=== PATIENT | female | born 1955 | race Caucasian/White ===

== ENCOUNTER → 2016-07-09 | Outpatient (CLI) | payer BC ==
--- NOTE | 2016-07-09 10:39 | REPMRS ---
Patient History The patient states she had a clinical breast exam in 07/14 Patient is postmenopausal. Family history of colorectal cancer in maternal grandfather at age 50 or over, premenopausal breast cancer in maternal aunt at age 50 or over, and breast cancer in maternal grandmother at age 50 or over. Benign stereotatic breast biopsy of the left breast, 2005. Digital Woman Screen Mammo: July 09, 2016 - Exam #: [id number] Bilateral CC and MLO view(s) were taken. Technologist: Rocio Tinsley, Technologist Prior study comparison: July 11, 2015, digital woman screen mammo performed at [facility] [employer] [facility]. June 17, 2014, digital woman screen mammo performed at [facility] [employer] [facility]. FINDINGS: There are scattered fibroglandular densities. There has been no change in the appearance of the mammogram from the prior studies. There is a mild amount of residual fibroglandular tissue which is fairly symmetric. There is no interval development of dominant mass, architectural distortion, or clustered microcalcification suggestive of malignancy. ASSESSMENT: BI-RADS/ACR category 1 mammogram. Negative. Recommendation Routine screening mammogram in 1 year (for women over age 40). This mammogram was interpreted with the aid of an FDA-approved computer-aided dectection system. Electronically Signed By: Modesto Rutledge MD 07/09/16 [id number]
== END ==
LOC: M WHC 08:25
PROVIDERS: ATTEND Nurse Practitioner Family
DX: Z12.31 Encounter for screening mammogram for malignant neoplasm of breast (principal); Z80.3 Family history of malignant neoplasm of breast

== ENCOUNTER → 2016-07-12 | Outpatient (REF) | payer BC ==
[~2016-07-12] MED LIST: ACET30TAB PO; APAP/CODEINE; CALCTAB43 PO; ESTR62CR; ESTR62CR PV; FISH1000 PO; FLON1SPR; FLON50SP; FLUT1SPR2; IBUP200C PO; LEVO100T5 PO; LEVO100T54 PO; STRETAB36 PO; SYNT100T; TYLE500T78 PO; VITMTA PO; ZYRT10CA PO
== END ==
LOC: M LAB REF 16:58
PROVIDERS: ATTEND Physician Assistant
DX: R50.9 Fever, unspecified (principal)

== ENCOUNTER 2016-07-15 07:46 | Emergency (ER) | payer BC ==
[~2016-07-15] VITALS: Ht 157.5 cm; Wt 67.1 kg
[2016-07-15] MEDS ORDERED: FLON1SPR (07:59)
[2016-07-15] MEDS ORDERED: LEVO100T5 PO (07:59)
[2016-07-15] MEDS ORDERED: ZYRT10CA PO (07:59)
[2016-07-15] MEDS ORDERED: MORPHINE 2 MG/ML 1ML SYRINGE IV ONE ×2 (08:15→11:30)
[2016-07-15] MEDS ORDERED: ACETAMINOPHEN TAB 650MG DOSE (2X325MG) PO ONE (08:15)
[2016-07-15] MEDS ORDERED: NS 1,000 ML IV ONE (08:15)
--- NOTE | 2016-07-15 09:07 | REP ---
Clinical: Chest pain and fever. Technique: PA and lateral. Comparison: None. Findings: Acute versus chronic linear fibroatelectatic changes at the left base require correlation. The remainder of lung gibbs are clear. No further consolidation, effusion, or pneumothorax. Mediastinum and cardiac silhouette normal. Skeletal structures intact. Impression: Acute versus chronic linear fibroatelectatic changes at the left base Signed by Duy Overton MD 07/15/2016 08:58 A
[2016-07-15 09:38] LABS: BASO % 0.4 % (0.0-1.0); EOS # 0.1 K/mm3 (0.0-0.50); LARGE UNSTAINED CELL # 0.4 K/mm3 (0.0-0.4); LARGE UNSTAINED CELL % 5.5 % (0.0-4.0); LYMPH % 13.8 % (24.0-44.0); MEAN CORPUSCULAR HEMOGLOBIN 29.9 pg (27.0-33.0); MEAN CORPUSCULAR HGB CONC 32.4 g/dl (32.0-36.5); MEAN CORPUSCULAR VOLUME 92.2 fl (80.0-96.0); MONO # 0.5 K/mm3 (0.0-0.8); MONO % 6.7 % (0.0-5.0); NEUTROPHILS # 5.1 K/mm3 (1.8-7.7); NEUTROPHILS % 72.6 % (36.0-66.0); PLATELET COUNT, AUTOMATED 266 k/mm3 (150-450); RED CELL DISTRIBUTION WIDTH 11.9 % (11.5-14.5)
[2016-07-15 09:59] LABS: ALBUMIN/GLOBULIN RATIO 0.77 (1.00-1.93); ALKALINE PHOSPHATASE 123 U/L (45-117); ALT/SGPT 67 U/L (12-78); ANION GAP 9 MEQ/L (8-16); AST/SGOT 48 U/L (15-37); BILIRUBIN,DIRECT 0.1 MG/DL (0.0-0.2); BILIRUBIN,TOTAL 0.4 MG/DL (0.2-1.0); BLOOD UREA NITROGEN 5 MG/DL (7-18); CALCIUM LEVEL 8.6 MG/DL (8.5-10.1); CARBON DIOXIDE LEVEL 26 MEQ/L (21-32); CHLORIDE LEVEL 105 MEQ/L (98-107); CREATININE FOR GFR 0.76 MG/DL (0.55-1.02); GLOMERULAR FILTRATION RATE > 60.0 (>51); GLUCOSE, FASTING 92 MG/DL (70-105); POTASSIUM SERUM 3.3 MEQ/L (3.5-5.1); SODIUM LEVEL 140 MEQ/L (136-145); TOTAL PROTEIN 6.9 GM/DL (6.4-8.2)
--- NOTE | 2016-07-15 12:05 | REP ---
Clinical: Right upper quadrant abdominal pain. Technique: Rutledge scale ultrasound using curved array transducer. Findings: The liver and pancreas are normal in contour, size, and echogenicity without focal hepatic or pancreatic lesions identified. The gallbladder is distended and includes multiple polyps up to approximately 5 mm without gallstones, wall thickening or pericholecystic fluid. No sonographic Noriega's sign was elicited. No biliary ductal dilatation is appreciated, and the common bile duct measures 2.8 mm diameter. The right kidney is normal in reniform shape without hydronephrosis and measures 11.1 x 4.7 x 4.5 cm with 1.7 cm upper pole cyst. No ascites. Visualized portions of the abdominal aorta normal. Impression: 1. Mildly distended gallbladder with multiple polyps. No further sonographic evidence to suggest acute cholecystitis. 2. 1.7 cm simple right renal cyst. Signed by Duy Overton MD 07/15/2016 11:57 A
[2016-07-15] MEDS ORDERED: IBUPROFEN 600 MG TAB PO ONE (12:30)
[2016-07-15] MEDS ORDERED: ACET30TAB PO (13:12)
[2016-07-15 13:53] VITALS: BP 127/70
--- NOTE | 2016-07-16 07:10 | ED PDOC ---
Post-Departure Follow-Up dr bess faxed formal report of gb for fu Florentin Cruz MD July 16, 2016 07:10
--- NOTE | 2016-07-16 11:34 | ECGEPIP ---
Stationary ECG Study [facility] - ED Test Date: 2016-07-15 Pat Name: ORLIN CALIX Department: Room: - Gender: F Tool Designer: jeanne : [id number] Requested By: Poncho Felix PA-C Order Number: [id number] Reading MD: Janny Krause Measurements Intervals [place] Rate: 67 P: 65 MA: 116 QRS: 67 QRSD: 90 T: 74 QT: 346 QTc: 365 Interpretive Statements SINUS RHYTHM WITH SHORT MA INTERVAL NONSPECIFIC T-WAVE ABNORMALITY INCREASED RATE 07/28/11 Electronically Signed On 07-16-2016 11:34:18 EDT by Janny Krause
== END 2016-07-15 13:55 | disposition home or self-care (01) ==
LOC: M ED 08:34
DX: M75.51 Bursitis of right shoulder (principal); B34.9 Viral infection, unspecified; R00.1 Bradycardia, unspecified; E07.9 Disorder of thyroid, unspecified; J30.9 Allergic rhinitis, unspecified; Z79.899 Other long term (current) drug therapy; Z88.3 Allergy status to other anti-infective agents; Z91.040 Latex allergy status

== ENCOUNTER 2016-07-19 10:18 | Inpatient (IN) | payer BC ==
[~2016-07-19] VITALS: Ht 157.5 cm; Wt 69.2 kg
[~2016-07-19 10:18] MED LIST changes: -APAP/CODEINE; -CALCTAB43 PO; -ESTR62CR; -ESTR62CR PV; -FISH1000 PO; -FLON50SP; -FLUT1SPR2; -IBUP200C PO; -LEVO100T54 PO; -STRETAB36 PO; -SYNT100T; -TYLE500T78 PO; -VITMTA PO
[2016-07-19] MEDS ORDERED: APAP/CODEINE (10:35)
[2016-07-19] MEDS ORDERED: ESTR62CR (10:35)
[2016-07-19] MEDS ORDERED: IBUP200C PO (10:35)
[2016-07-19] MEDS ORDERED: FLUT1SPR2 (10:35)
[2016-07-19] MEDS ORDERED: SYNT100T (10:35)
[2016-07-19] MEDS ORDERED: NS 500 ML IV ONE (12:15)
[2016-07-19] MEDS ORDERED: KETOROLAC 30 MG/ML VIAL (J1885) IV ONE (12:15)
[2016-07-19 12:33] LABS: BASO % 0.2 % (0.0-1.0); EOS # 0.1 K/mm3 (0.0-0.50); LARGE UNSTAINED CELL # 0.3 K/mm3 (0.0-0.4); LARGE UNSTAINED CELL % 2.6 % (0.0-4.0); LYMPH # 1.6 K/mm3 (1.5-4.5); LYMPH % 12.6 % (24.0-44.0); MEAN CORPUSCULAR HEMOGLOBIN 30.3 pg (27.0-33.0); MEAN CORPUSCULAR HGB CONC 33.1 g/dl (32.0-36.5); MEAN CORPUSCULAR VOLUME 91.8 fl (80.0-96.0); MONO # 0.4 K/mm3 (0.0-0.8); NEUTROPHILS % 80.6 % (36.0-66.0); PLATELET COUNT, AUTOMATED 576 k/mm3 (150-450); RED CELL DISTRIBUTION WIDTH 12.2 % (11.5-14.5); WHITE BLOOD COUNT 12.5 K/mm3 (4.0-10.0)
[2016-07-19 12:39] LABS: ANION GAP 12 MEQ/L (8-16); BLOOD UREA NITROGEN 8 MG/DL (7-18); CALCIUM LEVEL 8.9 MG/DL (8.8-10.2); CARBON DIOXIDE LEVEL 28 MEQ/L (21-32); CHLORIDE LEVEL 101 MEQ/L (98-107); CREATININE FOR GFR 0.69 MG/DL (0.55-1.02); GLOMERULAR FILTRATION RATE > 60.0 (>45); GLUCOSE, FASTING 93 MG/DL (80-110); POTASSIUM SERUM 3.1 MEQ/L (3.5-5.1); SODIUM LEVEL 141 MEQ/L (136-145)
[2016-07-19 13:19] LABS: ERYTHROCYTE SEDIMENTATION RATE 65 mm/hr (0-30)
[2016-07-19] MEDS ORDERED: ESTR62CR PV (15:11)
[2016-07-19] MEDS ORDERED: ACET30TAB PO (15:11)
[2016-07-19] MEDS ORDERED: STRETAB36 PO (15:18)
[2016-07-19] MEDS ORDERED: FLON50SP (15:18)
[2016-07-19] MEDS ORDERED: FISH1000 PO (15:18)
[2016-07-19] MEDS ORDERED: CALCTAB43 PO (15:18)
[2016-07-19] MEDS ORDERED: LEVO100T54 PO (15:18)
[2016-07-19] MEDS ORDERED: VITMTA PO (15:18)
[2016-07-19] MEDS ORDERED: TYLE500T78 PO (15:18)
--- NOTE | 2016-07-19 17:05 | REP ---
Bilateral shoulder ultrasound: History: Septic shoulder on the right. Aspirated for culture. Findings: Sonographic evaluation of the right shoulder performed and no evidence shoulder joint effusion is seen. The left area was scanned for comparison purposes and is unremarkable as well. Impression: No right shoulder joint fluid could be identified. Accordingly, the right shoulder joint was not aspirated. Findings were telephoned to the ED provider. Signed by Brody Deleon MD 07/20/2016 05:06 P
[2016-07-19] MEDS ORDERED: NS 1,000 ML IV ONE (17:45)
[2016-07-19] MEDS ORDERED: ACETAMINOPHEN 325 MG TAB PO ONE (17:45)
--- NOTE | 2016-07-19 18:07 | ED PDOC ---
Post-Departure Follow-Up AT THIS TIME, HAVE SPOKEN WITH DR. CASTELLANO (ORTHO ON-CALL) NUMEROUS TIMES REGARDING THIS PT. FIRST SPOKE WITH HIM EARLIER TODAY AND ADVISED THAT DR. APPLE ( HOSPITALIST) DOES NOT BELIEVE THIS TO BE A MEDICAL ADMIT IF LIKELY A SEPTIC JOINT AND PT DOES NOT HAVE MANY MEDICAL PROBLEMS. AT THAT TIME, DR. CASTELLANO WANTED A JOINT ASPIRATION PERFORMED UNDER ULTRASOUND GUIDANCE. PLACED ORDER FOR THIS AT THAT TIME AND STUDY WAS DONE AND WAS NOTIFIED BY I.R. STAFF THAT THERE WAS NO FLUID TO ASPIRATE. CALLED AND SPOKE WITH DR. CASTELLANO AGAIN AND ADVISED TO ORDER MRI OF THIS JOINT TO FURTHER DIAGNOSE RIGHT SHOULDER PAIN AND INFECTION. MADE AWARE THAT MRI WAS DOWN ALL WEEKEND AND STILL NOT UP AND FUNCTIONAL AT THIS TIME. CALLED THE ORTHO SERVICE BACK AT THAT TIME AND RECEIVED CALL BACK FROM DR. YORK, (NOW HAND STRAIGHTENER FOR ORTHO) AND ADVISED SINCE WE CANNOT GET AN MRI OF THIS SHOULDER, ADVISED TO ORDER CT WITH CONTRAST OF THIS SHOULDER AND IF THERE IS NO ABSCESS, THEN IT SHOULD BE ADMITTED TO THE HOSPITALIST IT WOULD NO LONGER BE AN ORTHOPEDIC ISSUE. SPOKE WITH PT AND FAMILY AT THIS TIME, WHO IS STILL NPO AND DISCUSSED CURRENT SITUATION. PT AND FAMILY VOICED UNDERSTANDING AT THIS TIME. ADWOA SCALES PA-C July 19, 2016 18:07
[2016-07-19] MEDS ORDERED: ISOVUE-370 76% 100ML VIAL (Q9967) As Ordered ONE (18:10)
--- NOTE | 2016-07-19 18:40 | REP ---
Clinical: Right shoulder pain. Septic joint. Technique: Axial contrast enhanced images of the right shoulder to the mid humeral diaphysis with coronal and sagittal re-formations using 100 ml Isovue 370 intravenous contrast material. Findings: The osseous structures are intact and normal. There is no evidence for acute fracture or dislocation and no significant, overt osteoarthritic degenerative changes are appreciated. The joint spaces normal and without abnormally increased fluid or enhancement. The surrounding musculature is grossly unremarkable. There is no significant intramuscular fluid collection, mass lesion or abnormal enhancement. The surrounding subcutaneous tissues are relatively normal. Axillary region is unremarkable. No significant adenopathy is appreciated. Visualized lung gibbs demonstrate atelectasis in the apical right lower lobe and associated small layering pleural effusion. While these findings are nonspecific, may be cause referred pain to the right shoulder and back. Impression: 1. Normal appearance to the right shoulder by contrast enhanced CT evaluation. No evidence for joint effusion, fluid collection/abscess, mass lesion or other abnormality. No significant, overt osteoarthritic changes. 2. Visualized lung gibbs demonstrate atelectasis involving the apical segment right lower lobe with associated small layering effusion. These findings require correlation and may cause referred pain to the right shoulder and back. Signed by Duy Overton MD 07/19/2016 06:32 P
[2016-07-19] MEDS ORDERED: ONDANSETRON 4MG/2ML VIAL (J2405) IV PRN (19:30)
[2016-07-19] MEDS ORDERED: ACETAMINOPHEN 500 MG TAB PO PRN (19:30)
--- NOTE | 2016-07-19 19:46 | HPE ---
DATE OF ADMISSION: 07/19/2016 PRIMARY CARE PROVIDER: Chance Tracey MD CHIEF COMPLAINT: Fever, mild chills, body aches for 10 days. Shoulder pain for 6 days, redness of the shoulder for 1 day. PAST MEDICAL HISTORY: 1. Hypothyroidism. 2. Hyperlipidemia. HISTORY OF PRESENT ILLNESS: This is a 61-year-old female who has been in her usual state of health until 07/11/2016, when she started having flu-like symptoms with fever ranging from 99-101, body aches, mild chills, more involvement of the back and the shoulders. Went to an urgent care, was diagnosed with viral syndrome and was given some pain medications and discharged. Came to the emergency room on 07/15/2016, with persistence of symptoms, had lab work done, including blood cultures, and a chest xray and gallbladder ultrasound. Did not show any acute abnormalities except mildly distended gallbladder with multiple polyps without any evidence of acute cholecystitis. Was discharged from emergency room with pain medications and was diagnosed with possible viral syndrome and bursitis. Subsequently, blood cultures came back positive, two out of two bottles, with Streptococcus pneumoniae. On the same day, unsure whether the patient was called or not, patient developed redness of the shoulder since last night and severe pain, inability to move the right arm, so came back to the emergency room for a recheck. Patient was originally thought to have septic arthritis with mildly elevated white count of 12.5 and temperature of 100.1. Patient had an ultrasound of the shoulder done which did not show any fluid and could not be aspirated. Subsequently, patient had a CT scan of the shoulder done which showed that the right shoulder was normal on noncontrast CT, no evidence of joint effusion, fluid collection, or abscess. There was no significant osteoarthritic changes. Part of the lung was visualized which showed some atelectasis involving the apical segment of the right lobe and associated small layering effusion. Patient was subsequently admitted to the hospitalist service for possible myofascitis and cellulitis of the right shoulder. Patient reports a bug bite in the right scapula region 2 weeks ago which looked like a mosquito bite or a tick bite and then went away in a couple of days and did not bother her so the patient did not pay attention to it. PAST SURGICAL HISTORY: section. ALLERGIES: BACITRACIN and LATEX. SOCIAL HISTORY: Does not smoke. Does not abuse alcohol or recreational drugs. HOME MEDICATIONS: - Tylenol 1000 mg by mouth four times a day as needed for pain - acetaminophen/codeine one tablet four times a day as needed for pain - calcium with vitamin D one tablet by mouth daily - cetirizine 10 mg by mouth at bedtime - conjugated estrogen one dose per vagina twice per week - fish oil 1000 mg by mouth every evening - Flonase one spray both nostrils twice a day - ibuprofen 200 mg by mouth every 8 hours as needed for pain - Synthroid 100 mcg by mouth daily - multivitamin one tablet by mouth daily - vitamin B complex one tablet by mouth daily REVIEW OF SYSTEMS: Patient complains of persistent fever for the past 10 days with myalgias, now more localized in the right shoulder, difficulty in moving the right arm. Denies any cough or phlegm. Denies any chest pain. Denies any shortness of breath. Denies any nausea, vomiting, or diarrhea. Denies any abdominal pain. PHYSICAL EXAMINATION: VITAL SIGNS: Temperature 100.1, pulse 86, respiratory rate 20, blood pressure 163/82, pulse oximetry 97% in room air. GENERAL: Patient awake, alert, oriented times three, sitting up in bed in no acute distress. HEENT: Normocephalic, atraumatic. Moist mucous membranes. Anicteric eyes. CHEST: Clear to auscultation. CARDIOVASCULAR: S1, S2, regular. No rub, murmur, or gallop. ABDOMEN: Soft, nontender. Bowel sounds present. EXTREMITIES: No edema, skin and soft tissue right shoulder is red and inflamed which spreads to the anterior part of the right chest wall. LABORATORY DATA: WBC 12.5, hemoglobin 12.5, platelets 576. Sodium 141, potassium 3.1, chloride 101, bicarbonate 28, BUN 8, creatinine 0.6, glucose 93, calcium 8.9, CRP 19. Repeat blood cultures ordered. Blood cultures from 07/15/2016, positive for Streptococcus pneumoniae, two out of two bottles. RADIOLOGY: Right upper extremity CT scan showed normal right shoulder by contrast, no joint effusion, fluid collection, abscess, mass, lesion, or any abnormality. No osteoarthritic changes. Lung gibbs demonstrate atelectasis involving the apical segment right lower lobe with associated small layering effusion. Joint ultrasound of the right shoulder did not show any fluid and no fluid could be aspirated. ASSESSMENT AND PLAN: This is a 61-year-old female admitted for right shoulder myofascitis versus cellulitis possibly related to Streptococcus pneumoniae seeding. 1. Right shoulder cellulitis versus myofascitis. Possible organism Streptococcus pneumoniae as blood culture was positive. Will start the patient on ceftaroline. Pain medications as required. 2. Hypothyroidism. Will continue with Synthroid. 3. Deep venous thrombosis (DVT) prophylaxis. Will order.
--- NOTE | 2016-07-19 19:50 | CR ---
DATE OF CONSULTATION: 07/19/2016 REASON FOR CONSULTATION: Right shoulder pain. CHIEF COMPLAINT: Right shoulder pain. HISTORY OF PRESENT ILLNESS: Azul Pardo is a 61-year-old right hand dominant female who has had approximately one week of increasing right shoulder pain and difficulty with movement. The patient has a recent past history of nonspecific bug bite to the posterior scapula which resulted in some migratory arthralgias that started in the lower extremities and migrated to the upper extremity, then concentrating on the right upper extremity. Over the last week or so, the patient has had intermittent fevers, measured at home as high as 101. She presented to the [facility] emergency department last , where blood cultures were drawn. The patient was discharged to home. Blood cultures were positive for Streptococcus pneumoniae. She represented to the emergency department earlier today because of increasing pain and continued fevers at home. She has no prior history of surgery to the right shoulder or infection to the right upper extremity. She has no history of inflammatory arthropathies. The patient denies any chills, night sweats or constitutional symptoms. Her shoulder pain was relieved by ice and antiinflammatories, exacerbated by movement. She denies any numbness, tingling or burning sensations. Denies any associated neck pain. PAST MEDICAL HISTORY: None. MEDICATIONS: None. ALLERGIES: BACITRACIN and LATEX. PAST SURGICAL HISTORY: Noncontributory. SOCIAL HISTORY: The patient is a teacher's aid. Does not smoke, drink or use illicit drugs. Lives with her . Independent in all activities of daily living (ADLs). REVIEW OF SYSTEMS: Positive for recent fever, otherwise fourteen point review of systems was reviewed and unremarkable. PHYSICAL EXAMINATION: VITAL SIGNS: Temperature 98.3 currently. Maximum today 101. Heart rate 83, respiratory rate 18. Blood pressure 139/93. Oxygen saturation 98% on room air. GENERAL: Well-nourished female, appears her stated age. No acute distress. NEUROLOGICAL: She is awake, alert and oriented to person, place and time. She has intact sensory and motor function in her right upper extremity axillary, radial, median, ulnar AIN, PIN distributions. CARDIOVASCULAR: She has a 2+ radial pulse, brisk capillary refill to all digits of the right upper extremity. SKIN: There is a focus of erythema centered over the acromioclavicular (AC) joint with some surrounding induration. There is diffuse erythematous rash extending distally in the anterior chest wall. There is mild induration focused around the AC joint. There is no palpable fluctuance. MUSCULOSKELETAL: Focused physical exam of the right shoulder demonstrates no pain with passive range of motion of the right shoulder. There is no pain with axial load of the shoulder. The patient has 4 out of 5 deltoid strength, supraspinatus strength: She has 90 degrees of active forward flexion and 90 degrees of active abduction, internal rotation to iliac crest. 60 degrees of external rotation limited by her anterior shoulder pain. There is no tenderness along the trapezius, scapular spine, rhomboids, posterior deltoid, deltoid tuberosity, bicipital groove, maximal tenderness located over the AC joint. IMAGING: The patient had an ultrasound of the right shoulder to identify a fluid collection. There was no notable effusion suitable for aspiration. A CT scan with IV contrast of the right shoulder was done demonstrating no evidence of abscess, joint effusion or other drainable fluid collection. LABORATORY FINDINGS: White blood cell count 12.5, hemoglobin 12. The patient has recent blood cultures that are pending. CRP 19. Erythrocyte sedimentation rate of 65. ASSESSMENT: This is a 61-year-old right hand dominant female with right anterior shoulder pain and with clinical evidence of cellulitis. Her exam and imaging make septic arthritis or drainable abscess extremely unlikely. PLAN: I recommend antibiotics to cover for recent Streptococcus pneumoniae positive blood cultures per the primary team. The patient may get ice and antiinflammatories to the right shoulder as needed. She may be weightbearing as tolerated with range of motion as tolerated. Recommend MRI with IV gadolinium of the right shoulder to evaluate for soft tissue infection at the earliest opportunity. If the patient fails to respond to antibiotic therapy, may consider reattempt at aspiration of the right shoulder, although it is extremely unlikely that she has an intraarticular glenohumeral joint infection. No orthopedic surgical intervention is indicated at this time. Thank you for the consultation. JANEY
[2016-07-19] MEDS: CEFTAROLINE FOSAMIL 600 MG in D5W MINI-BAG PLUS 50 ML IV SCH (21:45)
[2016-07-19 22:45] VITALS: BP 160/86
[2016-07-19] MEDS: SENOKOT S TAB PO SCH (23:39)
[2016-07-19] MEDS: CETIRIZINE (ZyrTEC) 10 MG TAB PO SCH (23:39)
[2016-07-19] MEDS: KETOROLAC 30 MG/ML VIAL (J1885) IV PRN (23:39)
[2016-07-20] MEDS: LEVOTHYROXINE 0.1 MG TAB (100 MCG) PO SCH (06:28)
[2016-07-20 07:57] LABS: BASO % 0.2 % (0.0-1.0); EOS # 0.2 K/mm3 (0.0-0.50); EOS % 1.7 % (0.0-3.0); LARGE UNSTAINED CELL # 0.2 K/mm3 (0.0-0.4); LARGE UNSTAINED CELL % 1.8 % (0.0-4.0); LYMPH # 1.8 K/mm3 (1.5-4.5); LYMPH % 13.3 % (24.0-44.0); MEAN CORPUSCULAR HEMOGLOBIN 29.5 pg (27.0-33.0); MEAN CORPUSCULAR HGB CONC 32.6 g/dl (32.0-36.5); MEAN CORPUSCULAR VOLUME 90.6 fl (80.0-96.0); MONO # 0.6 K/mm3 (0.0-0.8); MONO % 4.7 % (0.0-5.0); NEUTROPHILS # 9.2 K/mm3 (1.8-7.7); NEUTROPHILS % 78.2 % (36.0-66.0); PLATELET COUNT, AUTOMATED 531 k/mm3 (150-450); RED CELL DISTRIBUTION WIDTH 12.5 % (11.5-14.5); WHITE BLOOD COUNT 11.7 K/mm3 (4.0-10.0)
[2016-07-20 08:00] VITALS: BP 129/72
[2016-07-20 08:09] LABS: ANION GAP 10 MEQ/L (8-16); BLOOD UREA NITROGEN 6 MG/DL (7-18); CALCIUM LEVEL 7.9 MG/DL (8.8-10.2); CARBON DIOXIDE LEVEL 26 MEQ/L (21-32); CHLORIDE LEVEL 105 MEQ/L (98-107); CREATININE FOR GFR 0.59 MG/DL (0.55-1.02); GLOMERULAR FILTRATION RATE > 60.0 (>45); GLUCOSE, FASTING 91 MG/DL (80-110); POTASSIUM SERUM 3.5 MEQ/L (3.5-5.1); SODIUM LEVEL 141 MEQ/L (136-145)
[2016-07-20] MEDS: PANTOPRAZOLE 40MG TAB (PROTONIX) PO SCH (09:39)
[2016-07-20] MEDS: SENOKOT S TAB PO SCH ×2 (09:39→20:44)
[2016-07-20] MEDS: KETOROLAC 30 MG/ML VIAL (J1885) IV PRN ×2 (09:40→15:44)
[2016-07-20] MEDS: ENOXAPARIN 40 MG/0.4 ML SYRINGE (J1650) SC SCH (09:40)
[2016-07-20] MEDS: CEFTAROLINE FOSAMIL 600 MG in D5W MINI-BAG PLUS 50 ML IV SCH ×2 (09:41→20:43)
--- NOTE | 2016-07-20 13:10 | IPNPDOC ---
Subjective Date Seen The patient was seen on 07/20/16. Subjective Chief Complaint/HPI The patient is a 61-year-old female admitted with a reason for visit of Myofascitis. General: Denies: Chills, Night Sweats Constitutional: Reports: Fever, Denies: Chills Eyes: Denies: Pain, Vision change ENT: Denies: Head Aches, Ear Pain Skin: Reports: Other (erythema, cellulitis of the right shoulder joint), Denies: Rash Pulmonary: Denies: Dyspnea, Cough Cardiovascular: Denies: Chest Pain, Palpitations Gastrointestinal: Denies: Nausea, Vomiting Genitourinary: Denies: Dysuria, Frequency Hematologic: Denies: Bruising, Bleeding Excessively Musculoskeletal: Reports: Shoulder Pain (right shoulder) Objective Physical Examination General Exam: Positive: Alert, Cooperative, No Acute Distress ENT Exam: Positive: Atraumatic, Mucous membr. moist/pink Neck Exam: Negative: JVD Chest Exam: Positive: Clear to auscultation, Normal air movement Heart Exam: Positive: Rate Normal, Normal S1, Normal S2 Abdomen Exam: Positive: Soft Extremity Exam: Positive: Other (right shoulder joint noted to have changes consistent with cellulitis/myositis, with erythema and mild tenderness to palpation on the superior and anterior surface of the deltoid area. Decreased range of motion of the right shoulder joint.) Psych Exam: Positive: Oriented x 3 Assessment /Plan Plan/VTE VTE Prophylaxis Ordered?: Yes Plan Right shoulder Cellulitis versus Myositis CT scan of the right shoulder joint with no evidence for joint effusion, fluid collection/abscess, mass lesion or other abnormality Orthopedic consultation appreciated--> recommend MRI of the shoulder joint Continue the patient on Teflaro for now Repeat blood cultures unrevealing thus far Analgesic medication ordered when necessary We will follow-up the results of the MRI study Streptococcus Pneumoniae Bacteremia likely 2/2 The patient is on Teflaro at this time Afebrile overnight, WBC trending downward Repeat Blood Culture negative thus far Hypothyroidism Continue with Synthroid. Deep venous thrombosis (DVT) prophylaxis Lovenox subcutaneously VS, I&O, 24H, Fishbone Vital Signs/I&O Vital Signs Date Time Temp Pulse Resp B/P (MAP) Pulse Ox O2 Delivery O2 Flow Rate FiO2 07/20/16 08:00 98.4 76 16 129/72 (91) 94 Room Air I&O- Last 24 Hours up to 6 AM 5/23/17 06:00 Intake Total 1000 ml Output Total 300 ml Balance 700 ml Laboratory Data 24H LABS Laboratory Tests 2 07/20/16 06:55: White Blood Count 11.7H, Red Blood Count 3.52L, Hemoglobin 10.4#L, Hematocrit 31.8L, Mean Corpuscular Volume 90.6, Mean Corpuscular Hemoglobin 29.5, Mean Corpuscular Hemoglobin Concent 32.6, Red Cell Distribution Width 12.5, Platelet Count 531H, Neutrophils (%) (Auto) 78.2H, Lymphocytes (%) (Auto) 13.3L, Monocytes (%) (Auto) 4.7, Eosinophils (%) (Auto) 1.7, Basophils (%) (Auto) 0.2, Neutrophils # (Auto) 9.2H, Lymphocytes # (Auto) 1.8, Monocytes # (Auto) 0.6, Eosinophils # (Auto) 0.2, Basophils # (Auto) 0.0, Large Unclassified Cells % 1.8 , Large Unclassified Cells # 0.2, Anion Gap 10, Glomerular Filtration Rate > 60.0, Blood Urea Nitrogen 6L, Creatinine 0.59, Sodium Level 141, Potassium Level 3.5, Chloride Level 105, Carbon Dioxide Level 26, Calcium Level 7.9L CBC/BMP Laboratory Tests 07/20/16 06:55 Red Blood Count 3.52 L, Mean Corpuscular Volume 90.6, Mean Corpuscular Hemoglobin 29.5, Mean Corpuscular Hemoglobin Concent 32.6, Red Cell Distribution Width 12.5, Neutrophils (%) (Auto) 78.2 H, Lymphocytes (%) (Auto) 13.3 L, Monocytes (%) (Auto) 4.7, Eosinophils (%) (Auto) 1.7, Basophils (%) ( Auto) 0.2, Neutrophils # (Auto) 9.2 H, Lymphocytes # (Auto) 1.8, Monocytes # ( Auto) 0.6, Eosinophils # (Auto) 0.2, Basophils # (Auto) 0.0, Calcium Level 7.9 L Microbiology Microbiology 07/19/16 Blood Culture - Preliminary, Resulted No growth after 24 hours . All specim... 07/19/16 Blood Culture - Preliminary, Resulted No growth after 24 hours . All specim... SERGIO POSADA MD July 20, 2016 13:10
--- NOTE | 2016-07-20 14:30 | REP ---
MRI STUDY OF THE RIGHT SHOULDER WITHOUT CONTRAST: HISTORY: Pain, redness, limited range of motion right shoulder. Comparison CT study July 19, 2016. Comparison sonography right shoulder July 19, 2016. Bacteremia blood culture positive for Streptococcus pneumonia. TECHNIQUE: Axial, oblique coronal, oblique sagittal imaging planes are utilized for T1 and T2-weighted scans obtained in the usual fashion with and without fat saturation. MRI FINDINGS: There is osteoarthritic hypertrophy at the acromioclavicular joint. The glenohumeral and acromioclavicular joints are normally aligned. The osteoarthritic hypertrophy is unchanged from comparison MRI study of the right shoulder dated November 2004 from [facility]. However, there is low T1, high T2 signal intensity marrow change on either side of the AC joint and there is a small quantity of fluid in the AC joint. There is inflammatory low T1 high T2 signal in the soft tissues superior , anterior and inferior to the AC joint. There is an ill-defined 3-4 cm area of abnormal signal intensity in the deltoid muscle anterior to the AC joint consistent with myositis. This is characterized by increased T2 signal intensity, some swelling, but no abnormal fluid collection. I cannot exclude a septic AC joint with adjacent deltoid muscle myositis and soft tissue inflammation. No subacromial or subdeltoid bursal effusion is seen. No glenohumeral joint effusion is seen. No rotator cuff tear is appreciated. The infraspinatus, subscapularis, and biceps tendons appear intact. IMPRESSION: Abnormal signal intensity in the distal clavicle and acromion process on either side of the AC joint with some fluid in the AC joint and considerable surrounding edema in the adjacent soft tissues. This includes a 3-4 cm area of ill-defined swelling and edema in the anterior aspect of the deltoid muscle consistent with myositis. Septic AC joint arthritis cannot be excluded. No glenohumeral effusion or other significant finding. No soft tissue abscess is seen. Signed by Brody Deleon MD 07/20/2016 05:08 P
[2016-07-20 16:00] VITALS: BP 122/70
[2016-07-20 20:00] VITALS: BP 129/75
[2016-07-20] MEDS: CETIRIZINE (ZyrTEC) 10 MG TAB PO SCH (20:44)
[2016-07-20] MEDS: PERCOCET 5MG/325MG TAB PO PRN (20:58)
[2016-07-21] VITALS: BP 130/77
[2016-07-21] MEDS: KETOROLAC 30 MG/ML VIAL (J1885) IV PRN ×2 (00:51→20:49)
[2016-07-21] MEDS: LEVOTHYROXINE 0.1 MG TAB (100 MCG) PO SCH (05:58)
[2016-07-21 07:29] LABS: BASO % 0.3 % (0.0-1.0); EOS # 0.4 K/mm3 (0.0-0.50); EOS % 4.8 % (0.0-3.0); LARGE UNSTAINED CELL # 0.2 K/mm3 (0.0-0.4); LARGE UNSTAINED CELL % 2.2 % (0.0-4.0); LYMPH # 2.3 K/mm3 (1.5-4.5); LYMPH % 23.9 % (24.0-44.0); MEAN CORPUSCULAR HEMOGLOBIN 29.9 pg (27.0-33.0); MEAN CORPUSCULAR HGB CONC 32.5 g/dl (32.0-36.5); MONO # 0.5 K/mm3 (0.0-0.8); MONO % 5.5 % (0.0-5.0); NEUTROPHILS # 5.4 K/mm3 (1.8-7.7); NEUTROPHILS % 63.2 % (36.0-66.0); PLATELET COUNT, AUTOMATED 586 k/mm3 (150-450); RED CELL DISTRIBUTION WIDTH 12.5 % (11.5-14.5); WHITE BLOOD COUNT 8.6 K/mm3 (4.0-10.0)
[2016-07-21 07:43] LABS: ANION GAP 8 MEQ/L (8-16); BLOOD UREA NITROGEN 8 MG/DL (7-18); CALCIUM LEVEL 8.4 MG/DL (8.8-10.2); CARBON DIOXIDE LEVEL 28 MEQ/L (21-32); CHLORIDE LEVEL 105 MEQ/L (98-107); CREATININE FOR GFR 0.73 MG/DL (0.55-1.02); GLOMERULAR FILTRATION RATE > 60.0 (>45); GLUCOSE, FASTING 89 MG/DL (80-110); POTASSIUM SERUM 3.5 MEQ/L (3.5-5.1); SODIUM LEVEL 141 MEQ/L (136-145)
[2016-07-21 07:56] LABS: ERYTHROCYTE SEDIMENTATION RATE 58 mm/hr (0-30)
[2016-07-21 08:00] VITALS: BP 121/74
[2016-07-21] MEDS: SENOKOT S TAB PO SCH ×2 (08:17→20:50)
[2016-07-21] MEDS: CEFTAROLINE FOSAMIL 600 MG in D5W MINI-BAG PLUS 50 ML IV SCH ×2 (08:17→20:50)
[2016-07-21] MEDS: PANTOPRAZOLE 40MG TAB (PROTONIX) PO SCH (08:17)
[2016-07-21] MEDS: PERCOCET 5MG/325MG TAB PO PRN ×2 (10:17→15:00)
--- NOTE | 2016-07-21 11:43 | IPNPDOC ---
Subjective Date Seen The patient was seen on 07/21/16. Subjective Chief Complaint/HPI The patient is a 61-year-old female admitted with a reason for visit of Myofascitis. General: Denies: Chills, Night Sweats Constitutional: Denies: Chills, Fever Eyes: Denies: Pain, Vision change ENT: Denies: Head Aches, Ear Pain Skin: Denies: Rash, Lesions Pulmonary: Denies: Dyspnea, Cough Cardiovascular: Denies: Chest Pain, Palpitations Gastrointestinal: Denies: Nausea, Vomiting Genitourinary: Denies: Dysuria, Frequency Hematologic: Denies: Bruising, Bleeding Excessively Musculoskeletal: Reports: Shoulder Pain (Right) Objective Physical Examination General Exam: Positive: Alert, Cooperative, No Acute Distress ENT Exam: Positive: Atraumatic, Mucous membr. moist/pink Neck Exam: Negative: JVD Chest Exam: Positive: Clear to auscultation, Normal air movement Heart Exam: Positive: Rate Normal, Normal S1, Normal S2 Abdomen Exam: Positive: Soft Extremity Exam: Positive: Other (right shoulder joint noted to have changes consistent with cellulitis/myositis, with erythema and mild tenderness to palpation on the superior and anterior surface of the deltoid area. Range of motion of the right shoulder joint improved, however unable to raise hand above shoulder length.) Psych Exam: Positive: Oriented x 3 Assessment /Plan Plan/VTE VTE Prophylaxis Ordered?: Yes Plan Right shoulder Cellulitis versus Myositis, r/o Septic Joint CT scan of the right shoulder joint with no evidence for joint effusion, fluid collection/abscess, mass lesion or other abnormality MRI of the shoulder joint notable for abnormal signal intensity in the distal clavicle and acromion process on either side of the AC joint with some fluid in the AC joint and considerable surrounding edema in the adjacent soft tissues. Septic Joint could not be ruled out The patient was evaluated by Dr. Deleon of Radiology today--->An Ultrasound Guided study of the Joint did not reveal enough fluid for aspiration I did discuss these findings with the Ortho team-->Cont IV Abx for now We will Continue the patient on Teflaro Repeat blood cultures unrevealing thus far Patient has been Afebrile here, WBC has normalized, Inflammatory markers trending downward Patient with increased ROM of the Right Shoulder today Analgesic medication ordered when necessary We will follow-up the patient's clinical condition, and Ortho recommendations. Streptococcus Pneumoniae Bacteremia likely 2/2 The patient is on Teflaro at this time Repeat Blood Culture negative thus far Hypothyroidism Continue with Synthroid. Deep venous thrombosis (DVT) prophylaxis Lovenox subcutaneously VS, I&O, 24H, [place] Vital Signs/I&O Vital Signs Date Time Temp Pulse Resp B/P (MAP) Pulse Ox O2 Delivery O2 Flow Rate FiO2 07/21/16 10:17 18 07/21/16 08:00 99.0 83 121/74 (90) 94 Room Air I&O- Last 24 Hours up to 6 AM 07/21/16 06:00 Intake Total 1710 ml Output Total 3300 ml Balance -1590 ml Laboratory Data 24H LABS Laboratory Tests 2 07/21/16 06:30: White Blood Count 8.6, Red Blood Count 3.42L, Hemoglobin 10.2L, Hematocrit 31.5L , Mean Corpuscular Volume 92.0, Mean Corpuscular Hemoglobin 29.9, Mean Corpuscular Hemoglobin Concent 32.5, Red Cell Distribution Width 12.5, Platelet Count 586H, Neutrophils (%) (Auto) 63.2, Lymphocytes (%) (Auto) 23.9L, Monocytes (%) (Auto) 5.5H, Eosinophils (%) (Auto) 4.8H, Basophils (%) (Auto) 0.3 , Neutrophils # (Auto) 5.4, Lymphocytes # (Auto) 2.3, Monocytes # (Auto) 0.5, Eosinophils # (Auto) 0.4, Basophils # (Auto) 0.0, Large Unclassified Cells % 2.2 , Large Unclassified Cells # 0.2, Erythrocyte Sedimentation Rate 58H, Anion Gap 8, Glomerular Filtration Rate > 60.0, Blood Urea Nitrogen 8, Creatinine 0.73, Sodium Level 141, Potassium Level 3.5, Chloride Level 105, Carbon Dioxide Level 28, Calcium Level 8.4L, C-Reactive Protein, Quantitative 9.75H CBC/BMP Laboratory Tests 07/21/16 06:30 Red Blood Count 3.42 L, Mean Corpuscular Volume 92.0, Mean Corpuscular Hemoglobin 29.9, Mean Corpuscular Hemoglobin Concent 32.5, Red Cell Distribution Width 12.5, Neutrophils (%) (Auto) 63.2, Lymphocytes (%) (Auto) 23.9 L, Monocytes (%) (Auto) 5.5 H, Eosinophils (%) (Auto) 4.8 H, Basophils (%) (Auto) 0.3, Neutrophils # (Auto) 5.4, Lymphocytes # (Auto) 2.3, Monocytes # ( Auto) 0.5, Eosinophils # (Auto) 0.4, Basophils # (Auto) 0.0, Calcium Level 8.4 L Microbiology Microbiology 07/19/16 Blood Culture - Preliminary, Resulted No growth after 24 hours . All specim... 07/19/16 Blood Culture - Preliminary, Resulted No growth after 24 hours . All specim... SERGIO PSOADA MD July 21, 2016 11:43
[2016-07-21] MEDS: ENOXAPARIN 40 MG/0.4 ML SYRINGE (J1650) SC SCH (11:45)
[2016-07-21 16:00] VITALS: BP 142/81
[2016-07-21 20:00] VITALS: BP 136/81
[2016-07-21] MEDS: CETIRIZINE (ZyrTEC) 10 MG TAB PO SCH (20:50)
[2016-07-22] VITALS: BP 130/77
[2016-07-22] MEDS: KETOROLAC 30 MG/ML VIAL (J1885) IV PRN ×5 (03:30→21:55)
[2016-07-22] MEDS: LEVOTHYROXINE 0.1 MG TAB (100 MCG) PO SCH (06:29)
[2016-07-22 07:31] LABS: BASO % 0.4 % (0.0-1.0); EOS # 0.4 K/mm3 (0.0-0.50); LARGE UNSTAINED CELL # 0.1 K/mm3 (0.0-0.4); LARGE UNSTAINED CELL % 1.6 % (0.0-4.0); LYMPH # 1.9 K/mm3 (1.5-4.5); LYMPH % 23.6 % (24.0-44.0); MEAN CORPUSCULAR HEMOGLOBIN 29.9 pg (27.0-33.0); MEAN CORPUSCULAR VOLUME 90.4 fl (80.0-96.0); MONO # 0.4 K/mm3 (0.0-0.8); MONO % 4.7 % (0.0-5.0); NEUTROPHILS % 64.6 % (36.0-66.0); PLATELET COUNT, AUTOMATED 655 k/mm3 (150-450); RED CELL DISTRIBUTION WIDTH 12.3 % (11.5-14.5); WHITE BLOOD COUNT 7.7 K/mm3 (4.0-10.0)
[2016-07-22 07:49] LABS: ANION GAP 7 MEQ/L (8-16); BLOOD UREA NITROGEN 9 MG/DL (7-18); CALCIUM LEVEL 8.5 MG/DL (8.8-10.2); CARBON DIOXIDE LEVEL 28 MEQ/L (21-32); CHLORIDE LEVEL 108 MEQ/L (98-107); CREATININE FOR GFR 0.76 MG/DL (0.55-1.02); GLOMERULAR FILTRATION RATE > 60.0 (>45); GLUCOSE, FASTING 91 MG/DL (80-110); POTASSIUM SERUM 3.8 MEQ/L (3.5-5.1); SODIUM LEVEL 143 MEQ/L (136-145)
[2016-07-22 08:00] VITALS: BP 141/83
[2016-07-22 08:32] LABS: ERYTHROCYTE SEDIMENTATION RATE 63 mm/hr (0-30)
[2016-07-22] MEDS: CEFTAROLINE FOSAMIL 600 MG in D5W MINI-BAG PLUS 50 ML IV SCH ×2 (08:32→20:25)
[2016-07-22] MEDS: PANTOPRAZOLE 40MG TAB (PROTONIX) PO SCH (08:33)
[2016-07-22] MEDS: ENOXAPARIN 40 MG/0.4 ML SYRINGE (J1650) SC SCH (08:33)
[2016-07-22] MEDS: SENOKOT S TAB PO SCH ×2 (08:33→20:25)
[2016-07-22] MEDS ORDERED: SLF 3 ML SYR IV PRN (12:45)
[2016-07-22] MEDS: SLF 3 ML SYR IV SCH ×2 (15:46→21:54)
[2016-07-22 16:00] VITALS: BP 134/88
--- NOTE | 2016-07-22 19:28 | IPN ---
DATE: 07/22/2016 SUBJECTIVE: Patient seen and examined in the room today. Patient stated her right shoulder pain is improving. Patient has increased range of motion of the right shoulder. No overnight events were reported. OBJECTIVE: Vital signs: Temperature 98.8, pulse 74, respiratory 18, blood pressure 141/83, pulse ox is 95% on room air. GENERAL: No acute distress, alert and oriented times three. HEENT: Normocephalic, atraumatic. Extraocular motor grossly intact. CARDIOVASCULAR: Positive S1, S2, regular rate. LUNGS: Clear to auscultation bilaterally. ABDOMEN: Soft, non-tender, non-distended. Bowel sounds present. EXTREMITIES: There is some patchy erythema located near the right shoulder joint. There is some tenderness to palpation but no fluctuance is appreciated. No lower extremity edema. No sign of cyanosis. LABORATORY DATA: WBC 7.7, hemoglobin 10.3, hematocrit 31.2, platelet count is 655. Erythrocyte sedimentation rate is 63. Sodium 143, potassium 3.8, chloride 108, carbon dioxide 28, BUN 9, creatinine 0.76, glomerular filtration rate (GFR) greater than 60. Fasting glucose 91, calcium 8.5, C reactive protein 6.41. ASSESSMENT AND PLAN: 1. Right shoulder cellulitis versus myositis. Cannot rule out septic joint complete due to inadequate amount of joint fluid for the sample. I discussed with orthopedic surgery team, and also discussed with Dr. Deleon. Patient shows clinical improvement with IV antibiotic. We will continue current treatment. Patient is continuing on Teflaro. 2. History of bacteremia with Streptococcus pneumoniae. Patient had a ED visit on 07/15/2016 , two sets of blood cultures was obtained which later came back positive for Streptococcus. However, when patient was admitted for hospitalization on 07/19/2016, patient had two sets of blood culture before the antibiotics and the blood culture has been negative for 72 hours. Will continue to monitor patient. Patient is currently on Teflaro. 3. Hypothyroidism, On Synthroid. 4. Deep vein thrombosis prophylaxis. Patient on Lovenox.
[2016-07-22 20:00] VITALS: BP 140/87
[2016-07-22] MEDS: CETIRIZINE (ZyrTEC) 10 MG TAB PO SCH (20:25)
[2016-07-23] VITALS: BP 132/80
[2016-07-23] MEDS: LEVOTHYROXINE 0.1 MG TAB (100 MCG) PO SCH (06:09)
[2016-07-23] MEDS: SLF 3 ML SYR IV SCH (06:09)
[2016-07-23] MEDS: KETOROLAC 30 MG/ML VIAL (J1885) IV PRN (06:21)
[2016-07-23 06:49] LABS: BASO % 0.3 % (0.0-1.0); EOS # 0.4 K/mm3 (0.0-0.50); EOS % 4.6 % (0.0-3.0); LARGE UNSTAINED CELL # 0.1 K/mm3 (0.0-0.4); LARGE UNSTAINED CELL % 1.6 % (0.0-4.0); LYMPH # 1.6 K/mm3 (1.5-4.5); LYMPH % 20.3 % (24.0-44.0); MEAN CORPUSCULAR HEMOGLOBIN 29.5 pg (27.0-33.0); MEAN CORPUSCULAR HGB CONC 32.9 g/dl (32.0-36.5); MEAN CORPUSCULAR VOLUME 89.9 fl (80.0-96.0); MONO # 0.4 K/mm3 (0.0-0.8); MONO % 4.5 % (0.0-5.0); NEUTROPHILS # 5.3 K/mm3 (1.8-7.7); NEUTROPHILS % 68.7 % (36.0-66.0); PLATELET COUNT, AUTOMATED 735 k/mm3 (150-450); RED CELL DISTRIBUTION WIDTH 12.2 % (11.5-14.5); WHITE BLOOD COUNT 7.8 K/mm3 (4.0-10.0)
[2016-07-23 07:03] LABS: ANION GAP 8 MEQ/L (8-16); BLOOD UREA NITROGEN 10 MG/DL (7-18); CALCIUM LEVEL 8.6 MG/DL (8.8-10.2); CARBON DIOXIDE LEVEL 27 MEQ/L (21-32); CHLORIDE LEVEL 106 MEQ/L (98-107); CREATININE FOR GFR 0.73 MG/DL (0.55-1.02); GLOMERULAR FILTRATION RATE > 60.0 (>45); GLUCOSE, FASTING 93 MG/DL (80-110); POTASSIUM SERUM 3.9 MEQ/L (3.5-5.1); SODIUM LEVEL 141 MEQ/L (136-145)
[2016-07-23 07:35] LABS: ERYTHROCYTE SEDIMENTATION RATE 63 mm/hr (0-30)
[2016-07-23 08:00] VITALS: BP 129/76
[2016-07-23] MEDS: SENOKOT S TAB PO SCH (08:33)
[2016-07-23] MEDS: CEFTAROLINE FOSAMIL 600 MG in D5W MINI-BAG PLUS 50 ML IV SCH (08:33)
[2016-07-23] MEDS: PANTOPRAZOLE 40MG TAB (PROTONIX) PO SCH (08:33)
[2016-07-23] MEDS: ENOXAPARIN 40 MG/0.4 ML SYRINGE (J1650) SC SCH (09:00)
[2016-07-23] MEDS ORDERED: AVEL1TAB PO (11:02)
--- NOTE | 2016-07-23 16:29 | DSES ---
DATE OF ADMISSION: 07/19/2016 DATE OF DISCHARGE: 07/23/2016 PRIMARY CARE PROVIDER: Dr. Tracey. AUTO FORMER MACHINE OPERATOR: Orthopedic surgery team. PROCEDURES: None. COMPLICATIONS: None. ADMISSION/DISCHARGE DIAGNOSES: 1. Right shoulder cellulitis versus myositis. 2. History of bacteremia with Streptococcus pneumoniae. 3. Hypothyroidism. 4. Hyperlipidemia. Prior to current hospitalization, patient came to [facility] on 06/15/2016 emergency room. During that visit, two sets of blood cultures were obtained and showed positive for Streptococcus pneumoniae; however, during this admission repeat blood culture was obtained, and it has been negative the whole hospitalization stay; however, patient has been treated with antibiotic that will cover the Streptococcus pneumoniae. HOSPITALIZATION COURSE: Patient is a 61-year-old female who presented to [facility] on 07/19/2016 with a fever, generalized body ache, and right shoulder redness and tenderness. Patient was admitted for cellulitis/myositis of the right shoulder. Patient started on Teflaro. Upper extremity CT was performed, and septic joint was on the differential, so the orthopedic team was consulted. Orthopedic team does not feel septic arthritis is highly on the differential. Patient was sent to the radiology department. Ultrasound was obtained, and there is no significant amount of fluid available for drainage, and patient was continued on the antibiotics. C-reactive protein and white blood cells (WBC) continued to improve with empiric antibody treatment. On 07/23/2016, patient was determined medically stable for discharge with the recommendation to finish a course of antibiotic treatment, and patient recommended to followup with the primary care provider. OBJECTIVE: VITAL SIGNS: Temperature 99.4, pulse 85, respirations 16, blood pressure is 129/76, pulse oximetry 94% in room air. LABORATORY DATA: WBC 7.8, hemoglobin 10.6, hematocrit 32.3, platelet count is 735. Sodium is 141, potassium 3.9, chloride is 106, carbon dioxide 27, BUN 10, creatinine 0.73, GFR greater than 60, fasting glucose is 93, calcium 8.6. C-reactive protein is 4.21 (on admission patient had C-reactive protein of 19). Disease screening is pending. Blood cultures negative after 72 hours times two sets. IMAGING STUDY: Right shoulder ultrasound showed no right shoulder joint fluid can be identified. CT of the right upper extremity with contrast showed normal appearance of the right shoulder by contrast-enhanced CT evaluation. No evidence for joint effusion, fluid collection/abscess, mass lesion, or other abnormalities. Right shoulder MRI without contrast showed normal signal intensity in the distal clavicle and acromial process on either side of acromioclavicular (AC) joint with some fluid in the AC joint and considerable surrounding edema in the adjacent soft tissue. This included a 3-4 cm area of ill-defined swelling and edema in the anterior aspect of the deltoid muscle with myositis. No soft tissue abscess is seen. DISCHARGE MEDICATIONS: - Avelox 400 mg by mouth daily for 7 days - Tylenol Extra Strength 1000 mg by mouth four times a day as needed - Tylenol with codeine one tablet by mouth four times a day as needed - calcium/vitamin D supplement, one tablet by mouth daily - Zyrtec 10 mg by mouth at bedtime - Flonase one spray per nasal twice a day - bupropion 200 mg every 8 hours as needed - levothyroxine 100 mcg by mouth daily - multivitamin one tablet by mouth daily DISCHARGE INSTRUCTIONS: Discontinue line. Discharge home. Activity as tolerated. Diet as tolerated. Patient shall follow with the primary care provider within one week. Patient can use a warm press to the right shoulder if needed. Patient should finish a course of antibiotics for her myositis/cellulitis. Patient does have a history of Streptococcus pneumoniae bacteremia. DISCHARGE TIME: Greater than 30 minutes. DISCHARGE CONDITION: Stable.
[2016-07-24 14:12] LABS: Lyme Disease IgG/IgM Antibodie <0.91 ISR (0.00-0.90); Lyme Disease IgM Ab Quantitati <0.80 index (0.00-0.79)
== END 2016-07-23 13:35 | disposition home or self-care (01) | DRG 344 ==
LOC: M ED 11:32 → M ED INP 19:17 → OBSVTOIN 19:17 → M PED 22:36 → OBSVTOIN 07-21 11:51 → INTOOBSV 07-21 11:51
PROVIDERS: ADMIT Internal Medicine Nephrology; ATTEND Internal Medicine
DX: M60.011 Infective myositis, right shoulder (principal); L03.113 Cellulitis of right upper limb; E03.9 Hypothyroidism, unspecified; E78.5 Hyperlipidemia, unspecified; Z79.899 Other long term (current) drug therapy; Z91.040 Latex allergy status; Z88.1 Allergy status to other antibiotic agents

== ENCOUNTER → 2016-08-09 | Outpatient (CLI) | payer BC ==
[~2016-08-09] VITALS: Ht 157.5 cm; Wt 65.8 kg
[~2016-08-09] MED LIST changes: +APAP/CODEINE; +AVEL1TAB PO; +CALCTAB43 PO; +CEPH500C PO; +ESTR62CR; +ESTR62CR PV; +FISH1000 PO; +FLON50SP; +FLUT1SPR2; +IBUP200C PO; +LEVO100T54 PO; +NS 1,000 ML IV ONE; +PROPOFOL 200 MG/20 ML VIAL As Ordered ONE; +STRETAB36 PO; +SYNT100T; +TYLE500T78 PO; +VITMTA PO
--- NOTE | 2016-08-09 14:26 | ROOR ---
Patient Name: Azul Pardo Procedure Date: 08/09/2016 1:55 PM Date of : 1955 Age: 61 [facility] Gender: Female Note Status: Finalized Procedure: Total Colonoscopy to Cecum + Cold Snare Polypectomy Indications: Screening for colorectal malignant neoplasm Providers: Giovanni Naidu MD Referring MD: JENNY Joe Requesting Provider: Medicines: Monitored Anesthesia Care Complications: No immediate complications. Procedure: Pre-Anesthesia Assessment: - The heart rate, respiratory rate, oxygen saturations, blood pressure, adequacy of pulmonary ventilation, and response to care were monitored throughout the procedure. The Colonoscope was introduced through the anus and advanced to the cecum, identified by appendiceal orifice and ileocecal valve. The colonoscopy was performed without difficulty. The patient tolerated the procedure well. The quality of the bowel preparation was excellent. Findings: The perianal and digital rectal examinations were normal. Non-bleeding internal hemorrhoids were found during retroflexion. The hemorrhoids were small and Grade I (internal hemorrhoids that do not prolapse). No other significant abnormalities were identified in a careful examination of the remainder of the colon. A medium polyp was found in the mid ascending colon. The polyp was sessile. The polyp was removed with a cold snare. Resection and retrieval were complete. The exam was otherwise without abnormality on direct and retroflexion views. Impression: - Non-bleeding internal hemorrhoids. - One medium polyp in the mid ascending colon, removed with a cold snare. Resected and retrieved. - The examination was otherwise normal on direct and retroflexion views. - The exam was otherwise normal to the cecum. Recommendation: - Patient has a contact number available for emergencies. The signs and symptoms of potential delayed complications were discussed with the patient. Return to normal activities tomorrow. Written discharge instructions were provided to the patient. - High fiber diet. - Discharge patient to home. - Continue present medications. - Await pathology results. - Telephone GI clinic for pathology results in 1 week. - Repeat colonoscopy for surveillance based on pathology results. - Return to referring physician. - The findings and recommendations were discussed with the patient's family. Giovanni Naidu MD Giovanni Naidu MD 08/09/2016 2:25:14 PM This report has been signed electronically. Number of Addenda: 0 Note Initiated On: 08/09/2016 1:55 PM Estimated Blood Loss: Estimated blood loss: none.
[2016-08-09 14:45] VITALS: BP 112/73
== END ==
LOC: M OPP 12:40
PROVIDERS: ATTEND Internal Medicine Gastroenterology
DX: Z12.11 Encounter for screening for malignant neoplasm of colon (principal); Z80.0 Family history of malignant neoplasm of digestive organs; D12.2 Benign neoplasm of ascending colon; K64.0 First degree hemorrhoids; E07.9 Disorder of thyroid, unspecified; Z79.899 Other long term (current) drug therapy; Z88.0 Allergy status to penicillin; Z88.1 Allergy status to other antibiotic agents; Z91.040 Latex allergy status

== ENCOUNTER → 2016-09-10 | Outpatient (REF) | payer BC ==
[~2016-09-10] MED LIST changes: -AVEL1TAB PO; +AVEL1TAB3 PO; -CALCTAB43 PO; +CALCTAB74 PO; -IBUP200C PO; +IBUP200C10 PO; -NS 1,000 ML IV ONE; -PROPOFOL 200 MG/20 ML VIAL As Ordered ONE
[2016-09-10 12:00] LABS: BASO % 0.7 % (0.0-1.0); EOS # 0.2 K/mm3 (0.0-0.50); EOS % 4.1 % (0.0-3.0); LARGE UNSTAINED CELL # 0.1 K/mm3 (0.0-0.4); LYMPH # 1.8 K/mm3 (1.5-4.5); LYMPH % 30.6 % (24.0-44.0); MEAN CORPUSCULAR VOLUME 90.9 fl (80.0-96.0); MONO # 0.3 K/mm3 (0.0-0.8); MONO % 5.3 % (0.0-5.0); NEUTROPHILS # 3.1 K/mm3 (1.8-7.7); NEUTROPHILS % 57.3 % (36.0-66.0); PLATELET COUNT, AUTOMATED 290 k/mm3 (150-450); RED CELL DISTRIBUTION WIDTH 12.2 % (11.5-14.5); WHITE BLOOD COUNT 5.4 K/mm3 (4.0-10.0)
[2016-09-10 12:11] LABS: URIC ACID 3.3 MG/DL (2.6-6.0)
[2016-09-10 12:34] LABS: ERYTHROCYTE SEDIMENTATION RATE 7 mm/hr (0-30)
[2016-09-15 00:07] LABS: Lyme Disease IgG/IgM Antibodie <0.91 ISR (0.00-0.90); Lyme Disease IgM Ab Quantitati <0.80 index (0.00-0.79)
== END ==
LOC: M LABDRAW1 11:34
PROVIDERS: ATTEND Orthopaedic Surgery
DX: M79.675 Pain in left toe(s) (principal)

== ENCOUNTER → 2016-12-25 | Outpatient (CLI) | payer BC ==
--- NOTE | 2016-12-25 21:16 | ECGEPIP ---
Stationary ECG Study [facility] Test Date: 2016-12-25 Pat Name: ORLIN CALIX Department: Room: - Gender: F Certified Court Interpreter: LINSEY : 1955 Requested By: Sami Martins Order Number: [id number] Reading MD: Oscar Garcia Measurements Intervals [place] Rate: 52 P: 66 DC: 112 QRS: 68 QRSD: 96 T: 83 QT: 398 QTc: 373 Interpretive Statements SINUS BRADYCARDIA WITH SHORT DC INTERVAL Electronically Signed On 12-25-2016 21:15:51 EDT by Oscar Garcia
== END ==
LOC: M EKG 10:20
PROVIDERS: ATTEND Orthopaedic Surgery
DX: Z01.812 Encounter for preprocedural laboratory examination (principal); M19.072 Primary osteoarthritis, left ankle and foot; M20.22 Hallux rigidus, left foot

== ENCOUNTER → 2017-07-08 | Outpatient (CLI) | payer BC | LOC: M WHC 08:32 | DX: Z12.31 Encounter for screening mammogram for malignant neoplasm of breast (principal); Z78.0 Asymptomatic menopausal state; R92.8 Other abnormal and inconclusive findings on diagnostic imaging of breast; Z98.890 Other specified postprocedural states; Z79.890 Hormone replacement therapy | CPT/HCPCS: 77067 ==

== ENCOUNTER → 2017-07-08 | Outpatient (REF) | payer BC | LOC: M SFHCWAGY 09:01 | DX: Z01.419 Encounter for gynecological examination (general) (routine) without abnormal findings (principal); Z11.51 Encounter for screening for human papillomavirus (HPV); N95.2 Postmenopausal atrophic vaginitis | CPT/HCPCS: G0123 ==

== ENCOUNTER → 2018-07-21 | Outpatient (CLI) | payer BC ==
[~2018-07-21] MED LIST changes: +ACET-716 PO; -ACET30TAB PO; -IBUP200C10 PO; +IBUP200C25 PO
--- NOTE | 2018-07-21 09:45 | REPMRS ---
Patient History The patient states she had a clinical breast exam in 06/2018. Patient is postmenopausal. Family history of breast cancer at age 50 or over in maternal grandmother, breast cancer at age 50 or over in maternal aunt, colorectal cancer at age 50 or over in maternal grandfather, colorectal cancer at age 79 in mother. Benign stereotatic breast biopsy of the left breast, 2006. Taking estrogen for 3 years. 3D TOMOSYNTHESIS WAS PERFORMED. Digital Woman Screen Mammo: July 21, 2018 - Exam #: [id number] Bilateral CC and MLO view(s) were taken. Technologist: Rocio Tinsley, Technologist Prior study comparison: July 08, 2017, digital woman screen mammo performed at [facility] [email or web address] to [email or web address] [facility]. July 09, 2016, digital woman screen mammo performed at [facility] [email or web address] to [email or web address] [facility]. FINDINGS: There are scattered fibroglandular densities. There has been no change in the appearance of the mammogram from the prior studies. There is a mild amount of residual fibroglandular tissue which is fairly symmetric. There is no interval development of dominant mass, architectural distortion, or clustered microcalcification suggestive of malignancy. Assessment: BI-RADS/ACR category 1 mammogram. Negative Mammogram. Recommendation Routine screening mammogram in 1 year (for women over age 40). This mammogram was interpreted with the aid of an FDA-approved computer-aided dectection system. Electronically Signed By: Modesto Rutledge MD 07/21/18 0932
== END ==
LOC: M WHC 08:19
PROVIDERS: ATTEND Nurse Practitioner Family
DX: Z12.31 Encounter for screening mammogram for malignant neoplasm of breast (principal); Z80.3 Family history of malignant neoplasm of breast; Z80.0 Family history of malignant neoplasm of digestive organs

== ENCOUNTER → 2019-07-26 | Outpatient (CLI) | payer BC ==
--- NOTE | 2019-07-26 08:45 | REPMRS ---
Patient History The patient states she had a clinical breast exam in June 2019. Family history of breast cancer at age 50 or over in maternal grandmother, breast cancer at age 50 or over in maternal aunt, colorectal cancer at age 50 or over in maternal grandfather, colorectal cancer at age 79 in mother. Benign stereotatic breast biopsy of the left breast, 2006. Taking estrogen for 3 years. Digital Woman Screen Mammo: July 26, 2019 - Exam #: [id number] Bilateral CC and MLO view(s) were taken. Technologist: Tanya Zepeda, Technologist Prior study comparison: July 21, 2018, bilateral digital woman screen mammo performed at [facility]. July 08, 2017, digital woman screen mammo performed at [facility]. July 09, 2016, digital woman screen mammo performed at [facility]. FINDINGS: There are scattered fibroglandular densities. The Volpara volumetric breast density category is:B. There is a needle biopsy marker clip again noted in the left breast. There has been no change in the appearance of the mammogram from the prior studies. There is a mild amount of scattered fibroglandular density which is fairly symmetric. There is no interval development of dominant mass, architectural distortion, or grouped microcalcification suggestive of malignancy. 3-D tomosynthesis shows no additional findings. Assessment: BI-RADS/ACR category 2 mammogram. Benign Findings. Recommendation Routine screening mammogram of both breasts in 1 year (for women over age 40). This patient's Lifetime Breast Cancer Risk is estimated at 15.1 %. This mammogram was interpreted with the aid of an FDA-approved computer-aided dectection system. Electronically Signed By: Noel Deleon MD 07/26/19 0827
== END ==
LOC: M WHC 07:57
PROVIDERS: ATTEND Nurse Practitioner Family
DX: Z12.31 Encounter for screening mammogram for malignant neoplasm of breast (principal)

== ENCOUNTER → 2020-02-08 | Outpatient (CLI) | payer SELFPAY | LOC: M LABSMTC 11:16 | PROVIDERS: ATTEND Pediatrics | DX: Z20.828 Contact with and (suspected) exposure to other viral communicable diseases (principal) ==

== ENCOUNTER → 2020-07-29 | Outpatient (REF) | payer BC | LOC: M SFHCWAGY 13:29 | PROVIDERS: ATTEND Nurse Practitioner Women's Health | DX: Z12.4 Encounter for screening for malignant neoplasm of cervix (principal) | CPT/HCPCS: 87624; G0123 ==

== ENCOUNTER → 2020-07-29 | Outpatient (CLI) | payer BC ==
--- NOTE | 2020-07-29 10:03 | REPMRS ---
Patient History The patient states she had a clinical breast exam in July 2020. Patient is postmenopausal. Family history of breast cancer at age 50 or over in maternal grandmother, breast cancer at age 50 or over in maternal aunt, colorectal cancer at age 50 or over in maternal grandfather, colorectal cancer at age 79 in mother. Benign stereotatic breast biopsy of the left breast, 2005. Took estrogen for 3 years. Patient states no breast complaints today. Patient has signed MRS History Sheet. Digital Woman Screen Mammo: July 29, 2020 - Exam #: [id number] Bilateral CC and MLO view(s) were taken. Technologist: Tanya Zepeda, Technologist Prior study comparison: July 26, 2019, bilateral digital woman screen mammo performed at [facility]. July 21, 2018, bilateral digital woman screen mammo performed at [facility]. FINDINGS: There are scattered fibroglandular densities. Screening. Digital screening (2D) mammography was performed bilaterally in the CC and MLO projections. Additionally, breast tomosynthesis (3D mammography) was performed bilaterally in the CC and MLO projections. Todays exam was compared to the prior exams. By history, the patient has no complaints of a palpable breast abnormality or other significant breast complaints. The breasts are unchanged in size and shape. There are no todd-soft tissue densities or spiculated masses. There is no internal architectural distortion. There are no suspicious todd-calcific clusters. Skin thickening or nipple retraction is not present. IMPRESSION: BI-RADS Category 2- Benign Findings. There is no evidence of malignant alteration of the breasts. Followup examination recommended in one year. The Volpara volumetric breast density category is B, there are scattered areas of fibroglandular density. This mammogram was read with the assistance of [employer],an FDA approved computer aided detection system for mammography. The lifetime Tyrer-Cuzick score is 14.5 % Negative x-ray reports should not delay surgical consultation if a dominant or clinically suspicious mass is present. Not all breast cancers can be identified by mammography. Therefore, we recommend that you continue to perform regular breast self-examination and physical examination and then promptly contact your physician of any concerns or changes. Adenosis and dense breasts may obscure an underlying neoplasm. Assessment: BI-RADS/ACR category 2 mammogram. Benign Findings. Recommendation Routine screening mammogram of both breasts in 1 year. Electronically Signed By: Carlos Romero DO 07/29/20 1002
== END ==
LOC: M WHC 08:49
PROVIDERS: ATTEND Nurse Practitioner Women's Health
DX: Z12.31 Encounter for screening mammogram for malignant neoplasm of breast (principal)

== ENCOUNTER → 2021-08-05 | Outpatient (CLI) | payer MEDICARE, BC | LOC: M WHC 10:18 | PROVIDERS: ATTEND Advanced Practice Midwife | DX: Z01.419 Encounter for gynecological examination (general) (routine) without abnormal findings (principal); Z12.31 Encounter for screening mammogram for malignant neoplasm of breast; Z78.0 Asymptomatic menopausal state; Z80.3 Family history of malignant neoplasm of breast; Z80.0 Family history of malignant neoplasm of digestive organs; Z86.018 Personal history of other benign neoplasm; Z92.23 Personal history of estrogen therapy | CPT/HCPCS: 77063; 77067; G0101 ==

== ENCOUNTER → 2021-11-30 | Outpatient (CLI) | payer MEDICARE, BC | LOC: M WHC 09:13 | PROVIDERS: ATTEND Nurse Practitioner Family | DX: Z13.820 Encounter for screening for osteoporosis (principal); M81.0 Age-related osteoporosis without current pathological fracture ==

== ENCOUNTER → 2022-08-19 | Outpatient (CLI) | payer MEDICARE, BC | LOC: M WHC 08:27 | PROVIDERS: ATTEND Advanced Practice Midwife | DX: Z12.31 Encounter for screening mammogram for malignant neoplasm of breast (principal) ==

== ENCOUNTER 2023-05-23 07:44 | Day surgery (SDC) | payer MEDICARE, BC ==
[~2023-05-23] VITALS: Ht 157.5 cm; Wt 73.7 kg
[~2023-05-23 07:44] MED LIST changes: +ALEN70TA82 PO; +ASPI81TA26 PO; +OCUV1CAP4 PO; +SUPE600T4 PO; +SYNT112T2 PO; +ZYRTTAB8 PO
[2023-05-23] MEDS: NS 1,000 ML IV ONE (08:05)
[2023-05-23] MEDS ORDERED: propofoL 200 MG/20 ML VIAL As Ordered ONE (08:54)
[2023-05-23] MEDS ORDERED: LIDOCAINE 2% 100MG/5ML SDV (FOR ANES.) As Ordered ONE (08:54)
[2023-05-23 09:26] VITALS: TEMP 97.8
[2023-05-23 09:49] VITALS: BP 117/70; O2SAT 97
== END 2023-05-23 09:57 | disposition home or self-care (01) ==
LOC: M OPP 07:44
PROVIDERS: ATTEND Internal Medicine Gastroenterology
DX: Z12.11 Encounter for screening for malignant neoplasm of colon (principal); Z86.010 Personal history of colon polyps; Z80.0 Family history of malignant neoplasm of digestive organs; K63.5 Polyp of colon; K64.8 Other hemorrhoids; K57.30 Diverticulosis of large intestine without perforation or abscess without bleeding; Z79.51 Long term (current) use of inhaled steroids; Z79.82 Long term (current) use of aspirin; Z79.83 Long term (current) use of bisphosphonates; Z79.890 Hormone replacement therapy; Z79.899 Other long term (current) drug therapy; Z88.0 Allergy status to penicillin; Z88.1 Allergy status to other antibiotic agents; Z91.040 Latex allergy status

== ENCOUNTER → 2023-10-13 | Outpatient (CLI) | payer MEDICARE, BC | LOC: M WHC 13:26 | PROVIDERS: ATTEND Advanced Practice Midwife | DX: Z12.31 Encounter for screening mammogram for malignant neoplasm of breast (principal) ==

== ENCOUNTER → 2023-12-28 | Outpatient (CLI) | payer MEDICARE, BC | LOC: M WHC 14:08 | PROVIDERS: ATTEND Physician Assistant | DX: M81.0 Age-related osteoporosis without current pathological fracture (principal) ==

== ENCOUNTER → 2024-10-17 | Outpatient (REF) | payer MEDICARE, BC ==
[2024-10-19 15:23] LABS: HPV APTIMA Not Detected (Not Detected)
== END ==
LOC: M PLALAB 09:31
PROVIDERS: ATTEND Advanced Practice Midwife
DX: Z12.4 Encounter for screening for malignant neoplasm of cervix (principal)
CPT/HCPCS: 87624; G0123

== ENCOUNTER → 2024-10-17 | Outpatient (CLI) | payer MEDICARE, BC | LOC: M WHC 08:15 | PROVIDERS: ATTEND Advanced Practice Midwife | DX: Z12.31 Encounter for screening mammogram for malignant neoplasm of breast (principal) ==